=== PATIENT | female | born 1965 | race Caucasian/White ===

== ENCOUNTER 2017-10-17 06:03 | Day surgery (SDC) | payer OTHER ==
[2017-10-17] MEDS ORDERED: LIDOCAINE 4% SOLUTION 50 ML BTL (07:40)
[2017-10-17] MEDS ORDERED: MIDAZOLAM 1 MG/ML 2 ML INJ ×2 (08:24→08:25)
[2017-10-17] MEDS ORDERED: FENTAnyl 50 MCG/ML VIAL (08:25)
== END 2017-10-17 10:50 | disposition home or self-care (01) ==
LOC: GIL 06:03
DX: K21.0 Gastro-esophageal reflux disease with esophagitis (principal); K31.7 Polyp of stomach and duodenum; K29.60 Other gastritis without bleeding; I10 Essential (primary) hypertension
CPT/HCPCS: 43239; 88305; 88312; 88313